=== PATIENT | male | born 1980 | race Caucasian/White ===

== ENCOUNTER 2022-01-31 09:46 | Outpatient (CLI) | payer BC, SELFPAY ==
--- NOTE | 2022-01-31 11:00 | NEURO_ITS ---
Impression: # Complains of right hand numbness and pain. # Evolving right Carpal Tunnel Syndrome. # No ulnar neuropathy. # Normal needle/EMG exam. Nerve Conduction Studies Anti Sensory Summary Table Stim Site NR Peak (ms) P-T Amp (?V) Site1 Site2 Delta-P (ms) Dist (cm) Jacky (m/s) Right Median Anti Sensory (2-3nd Digit) Wrist 3.7 63.1 Wrist 2-3nd Digit 3.7 14.0 38 Wrist 3.8 48.7 Wrist 2-3nd Digit 3.7 14.0 38 Right Radial Anti Sensory (Base 1st Digit) Wrist 2.0 27.4 Wrist Base 1st Digit 2.0 0.0 Right Ulnar Anti Sensory (5th Digit) Wrist 2.3 52.3 Wrist 5th Digit 2.3 14.0 61 Motor Summary Table Stim Site NR Onset (ms) O-P Amp (mV) Site1 Site2 Delta-0 (ms) Dist (cm) Jacky (m/s) Right Median Motor (Abd Poll Brev) Wrist 3.2 5.8 Elbow Wrist 5.0 27.0 54 Elbow 8.2 4.4 Right Ulnar Motor (Abd Dig Minimi) Wrist 2.5 5.6 A Elbow Wrist 5.2 30.0 58 A Elbow 7.7 4.6 F Wave Studies NR F-Lat (ms) L-R F-Lat (ms) Right Median (Mrkrs) (Abd Poll Brev) 26.80 Right Ulnar (Mrkrs) (Abd Dig Min) 25.77 EMG Side Muscle Nerve Root Ins Act Fibs Amp Dur Recrt Comment Right 1stDorInt Ulnar C8-T1 Nml Nml Nml Nml Nml Right Ext Indicis Radial (Post Int) C7-8 Nml Nml Nml Nml Nml Right Ext Digitorum Radial (Post Int) C7-8 Nml Nml Nml Nml Nml Right BrachioRad Radial C5-6 Nml Nml Nml Nml Nml Right PronatorTeres Median C6-7 Nml Nml Nml Nml Nml Right Abd Poll Brev Median C8-T1 Nml Nml Nml Nml Nml Right ABD Dig Min Ulnar C8-T1 Nml Nml Nml Nml Nml MTDD
== END 2022-01-31 09:47 | disposition home or self-care (01) ==
PROVIDERS: PCP Emergency Medicine; Visit Provider Emergency Medicine
DX: R20.0 Anesthesia of skin (principal); G56.01 Carpal tunnel syndrome, right upper limb; R20.2 Paresthesia of skin
CPT/HCPCS: 95886; 95909

== ENCOUNTER 2022-10-02 16:45 | Emergency (ER) | payer BC, SELFPAY ==
--- NOTE | ~2022-10-02 | XR_ITS ---
EXAMINATION: XR chest 2V DATE: 10/02/2022 17:14 INDICATION: Chest pain TECHNIQUE: PA and lateral views of the chest are obtained. COMPARISON: None available FINDINGS: The lungs are free of acute opacities. No pleural effusion or pneumothorax. The cardiomedia stinal silhouette is normal. The visualized bones and soft tissues are unremarkable. IMPRESSION: 1. No acute cardiopulmonary abnormality. Reviewed, dictated and finalized at location B. 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
--- NOTE | 2022-10-02 16:50 | ECG_ITS ---
Measurements Intervals [place] Rate: 64 P: 40 UT: 177 QRS: -29 QRSD: 106 T: -9 QT: 398 QTc: 411 Interpretive Statements SINUS RHYTHM DELAYED PRECORDIAL R/S TRANSITION LOW QRS VOLTAGE IN PRECORDIAL LEADS INCOMPLETE RIGHT BUNDLE BRANCH BLOCK BORDERLINE ST-T WAVE ABNORMALITY- INFERIOR LEADS BORDERLINE ECG NO PREVIOUS ECG AVAILABLE FOR COMPARISON Electronically Signed On 10-02-2022 20:07:08 HOUSE NURSE by Roger Oliveira D.O.
[2022-10-02 16:56] VITALS: BP 135/97; PULSE 64; RESP 16; TEMP 36.4; O2SAT 100
--- NOTE | 2022-10-02 17:12 | ED.CHESTPAIN ---
HPI - Chest Pain General Chief Complaint: Chest Pain Stated Complaint: chest pain Time Seen by Provider: 10/02/22 16:50 Source: RN notes reviewed History of Present Illness HPI narrative: Patient presents emergency department for an home for chest pain. Patient states he has been having chest pain for the past 1 week. The pain in the midsternal chest and is described as a pressure nature that has been constant for the past 1 week and does not radiate nothing makes the pain better or worse denies any fevers or chills shortness of breath nausea vomiting diarrhea or any other symptoms does try taking [id number] antacids for the pain with minimal relief Related Data Allergies Allergy/AdvReac Type Severity Reaction Status Date / Time codeine Allergy Unknown unknown Verified 10/02/22 17:45 Review of Systems Review of Systems: Gen.: Denies fevers or chills ENT: Denies congestion Respiratory: Denies shortness of breath or cough CV: See HPI GI: Denies abdominal pain nausea, emesis or diarrhea Musculoskeletal: Denies back pain or muscle pain Neuro: Denies numbness, tingling, weakness or focal weakness Skin: Denies rash Except as documented, all other systems reviewed and negative [facility] Past Medical History Medical History Abnormal laboratory test result Anxiety Apneic spell Body mass index [BMI] 24.0-24.9, adult (12/14/15) Depression Fatigue GERD without esophagitis Hyperglycemia Snoring Sore throat Strain of lumbar region Vasomotor rhinitis Viral sinusitis Vitamin D deficiency Xyphoidalgia Family History Family History Grandparent Diabetes mellitus Father Family history of hypercholesterolemia Hypertension Social History Social History Smoking status: Never smoker Alcohol intake: current Exam Narrative: APPEARANCE: No acute distress, nontoxic, resting in bed EYES: EOMI HEENT: Normocephalic, atraumatic, OMM RESPIRATORY: No respiratory distress Clear to auscultation bilaterally with no rhonchi wheezing or rales. CARDIOVASCULAR: Regular rate and rhythm without murmurs rubs or gallops. ABDOMINAL: Soft, nontender, nondistended, no rebound or guarding MUSCULOSKELETAl: Moves all extremities. No clubbing, cyanosis or edema. NEURO: Awake and alert. Following commands, speech normal, no focal deficits SKIN:: Warm, dry. No rashes lesions or abrasions PSYCHIATRIC: Normal affect/mood, Course Course Emergency Course: Discussed with patient results of workup and diagnosis. Discussed need for follow-up with primary care, proper use of medication, and reasons to return to the emergency department. Patient understands and agrees to current treatment plan Vital Signs Vital signs: Vital Signs Temperature 97.6 F 10/02/22 16:56 Pulse Rate 64 10/02/22 16:56 Respiratory Rate 16 10/02/22 16:56 Blood Pressure 135/97 H 10/02/22 16:56 Pulse Oximetry 100 10/02/22 16:56 Oxygen Delivery Room Air 10/02/22 16:56 Temperature 97.6 F 10/02/22 16:56 Pulse Rate 66 10/02/22 18:24 Respiratory Rate 15 10/02/22 18:24 Blood Pressure 118/95 H 10/02/22 18:24 Pulse Oximetry 98 10/02/22 18:24 Oxygen Delivery Room Air 10/02/22 16:56 MDM - Chest Pain MDM Narrative Medical decision making narrative: Patient's EKGs and labs are without significant high risk changes. Cardiac risk factors reviewed. Patient is felt likely low risk for ACS and reasonable for further risk stratification testing as an outpatient. Pain was not sudden or maximal in onset without tearing or ripping quality. No other signs of symptoms suggest aortic dissection. A low-risk Wells criteria is noted, PE is felt to be unlikely. No pneumonia seen on evaluation today. Patient is felt to be a reasonable candidate for continued evaluation as an outpatient pain has been co
[2022-10-02 17:42] VITALS: BP 136/103; PULSE 70; PULSE 71; RESP 19; O2SAT 100
[2022-10-02 17:57] LABS: Basophils Percent Auto 0.7 % (0.2-1.2); Eosinophils Absolute Auto 0.1 K/mm3 (0-0.3); Eosinophils Percent Auto 2.3 % (0-4.4); Hematocrit 42.9 % (42.0-52.0); Hemoglobin 14.9 g/dL (14.0-18.0); Immature Granulocyte Absolute 0.01 K/mm3 (0.00-0.031); Immature Granulocyte Percent A 0.2 % (0-0.5); Lymphocytes Absolute Auto 2.71 K/mm3 (0.9-3.2); Lymphocytes Percent Auto 48.7 % (18.3-44.2); Mean Corpuscular HGB Conc 34.7 g/dl (32-36); Mean Corpuscular Hemoglobin 30.3 pg (26-34); Mean Corpuscular Volume 87.2 fl (80-100); Mean Platelet Volume 8.8 fl (7.4-10.4); Monocytes Absolute Auto 0.5 K/mm3 (0.1-0.6); Monocytes Percent Auto 8.3 % (2.6-8.5); Neutrophils Absolute Auto 2.2 K/mm3 (1.3-6.7); Neutrophils Percent Auto 39.8 % (45.5-73.1); Platelet Count Result 270 k/mm3 (150-375); Red Blood Count 4.92 M/mm3 (4.6-6.20); Red Cell Distribution Width 12.1 % (11.5-14.5); White Blood Count 5.6 K/mm3 (4.5-10.0)
[2022-10-02 18:09] LABS: Alanine Aminotransferase 45 U/L (6-50); Albumin Level 4.6 g/dL (3.5-5.1); Alkaline Phosphatase 74 U/L (38-126); Anion Gap 5 mmol/L (8-16); Aspartate Amino Transferase 45 U/L (17-59); Bilirubin,Total 1.6 mg/dL (0.2-1.3); Blood Urea Nitrogen 15 mg/dL (9-20); Calcium 9.1 mg/dL (8.4-10.2); Carbon Dioxide 28 mmol/L (22-30); Chloride 102 mmol/L (98-107); Estimated CRCL calculation 83 ml/min; Estimated Glomerular Filt Rate > 60; Glucose 93 mg/dL (65-110); Lipase 174 U/L (23-300); Potassium 4.2 mmol/L (3.4-5.0); Sodium 135 mmol/L (137-145)
[2022-10-02 18:20] LABS: Troponin I < 0.012 ng/mL (0.000-0.034)
[2022-10-02 18:24] VITALS: BP 118/95; PULSE 66; RESP 15; O2SAT 98
[2022-10-02] MEDS: KETOROLAC 30 MG/ML VIAL (*BKC) IV PUSH (18:45)
[2022-10-02 19:05] LABS: D Dimer < 0.27 ug/mL (<0.48)
== END 2022-10-02 20:14 | disposition home or self-care (01) ==
PROVIDERS: Emergency Provider Emergency Medicine; PCP Emergency Medicine
DX: R07.89 Other chest pain (principal); K21.9 Gastro-esophageal reflux disease without esophagitis; E55.9 Vitamin D deficiency, unspecified; F41.9 Anxiety disorder, unspecified; F32.A Depression, unspecified; I45.10 Unspecified right bundle-branch block; R94.31 Abnormal electrocardiogram [ECG] [EKG]
CPT/HCPCS: 36415; 71046; 80053; 83690; 84484; 85025; 85380; 93005; 96374; 99284; A9270; J1885

== ENCOUNTER 2022-11-14 09:24 | Outpatient (CLI) | payer BC, SELFPAY ==
--- NOTE | 2022-11-14 09:28 | EST_ITS ---
Patient Info Name: Kurtis Gaspar Age: 42 years : 1980 Gender: Male Ht: 68 in Wt: 158 lbs BSA: 1.86 m2 HR: 68 bpm BP: 115 / 81 mmHg Technical Quality: Good Exam Date: 11/14/2022 9:43 AM Exam Location: [facility] Stress Patient Status: Outpatient Admit Date: 11/14/2022 Staff Ordering Physician: Hansel Langford MD Quality Reviewer: Evy Vazquez RCS Attending Provider: Hansel Langford MD Exercise Technologist: Annie Yan CT Exercise Physician: Roger Oliveira DO Exam Type: CA stress echo Study Info Indications R07.9 - Chest pain, unspecified Treadmill exercise stress echocardiogram is performed. Summary 1. 1. Negative Charli exercise stress test for ischemic ST changes by ECG criteria. 2. 2. Good functional capacity, achieving 12 METs of workload. 3. 3. Appropriate HR response to exercise. 4. 4. Appropriate HR recovery at 1 minute post exercise. 5. 5. IRBBB changes to RBBB at peak exercise. 6. 6. Incidental mild right ventricular enlargement noted. 7. 7. Negative stress echocardiogram for ischemia by wall motion analysis. 8. 8. Patient informed of the above results. Stress Echo Findings Left Ventricle Appropriate increase in LV endocardial thickening with systole. Appropriate augmentation of contractility with systole. No wall motion abnormality. Left Ventricle Normal LV systolic function, no wall motion abnormality. Right Ventricle Mild RV enlargment. Protocol: Charli Stress ECG Details Stage: REST Duration (min): 1 min : 7 sec Speed (mph): 0.0 Grade (%): 0 HR (bpm): 70 SBP (mmHg): 115 DBP (mmHg): 81 METS: --- Stage: REST Duration (min): 27 min : 41 sec Speed (mph): 0.0 Grade (%): 0 HR (bpm): 73 SBP (mmHg): 115 DBP (mmHg): 81 METS: --- Stage: STAGE 1 Duration (min): 1 min : 0 sec Speed (mph): 1.7 Grade (%): 10 HR (bpm): 88 SBP (mmHg): 115 DBP (mmHg): 81 METS: --- Stage: STAGE 1 Duration (min): 2 min : 0 sec Speed (mph): 1.7 Grade (%): 10 HR (bpm): 97 SBP (mmHg): 115 DBP (mmHg): 81 METS: --- Stage: STAGE 1 Duration (min): 3 min : 0 sec Speed (mph): 1.7 Grade (%): 10 HR (bpm): 95 SBP (mmHg): 139 DBP (mmHg): 85 METS: --- Stage: STAGE 2 Duration (min): 1 min : 0 sec Speed (mph): 2.5 Grade (%): 12 HR (bpm): 106 SBP (mmHg): 139 DBP (mmHg): 85 METS: --- Stage: STAGE 2 Duration (min): 2 min : 0 sec Speed (mph): 2.5 Grade (%): 12 HR (bpm): 111 SBP (mmHg): 147 DBP (mmHg): 83 METS: --- Stage: STAGE 2 Duration (min): 3 min : 0 sec Speed (mph): 2.5 Grade (%): 12 HR (bpm): 116 SBP (mmHg): 147 DBP (mmHg): 83 METS: --- Stage: STAGE 3 Duration (min): 1 min : 0 sec Speed (mph): 3.4 Grade (%): 14 HR (bpm): 131 SBP (mmHg): 155 DBP (mmHg): 83 METS: --- Stage: STAGE 3 Duration (min): 2 min : 0 sec Speed (mph): 3.4 Grade (%): 14 HR (bpm): 136 SBP (mmHg):
== END 2022-11-14 09:25 | disposition home or self-care (01) ==
LOC: ANHCARD 09:25
PROVIDERS: PCP Emergency Medicine; Visit Provider Emergency Medicine
DX: R07.9 Chest pain, unspecified (principal); R20.0 Anesthesia of skin; R20.2 Paresthesia of skin
CPT/HCPCS: 93351

== ENCOUNTER 2023-08-19 15:23 | Emergency (ER) | payer BC, SELFPAY ==
--- NOTE | ~2023-08-19 | US_ITS ---
EXAMINATION: US venous doppler [facility] DATE: 08/19/2023 16:08 INDICATION: Lower extremity pain, eval for DVT . TECHNIQUE: Grayscale images without and with compression and Doppler images of the bilateral lower ex tremity veins were obtained. COMPARISON: None FINDINGS: The right common femoral vein, profunda (deep) femoral vein, femoral vein, popliteal vein, peroneal v ein, posterior tibial veins, gastrocnemius vein, and greater saphenous vein are patent. The left common femoral vein, profunda (deep) femoral vein, femoral vein, popliteal vein, peroneal v ein, posterior tibial veins, gastrocnemius vein, and greater saphenous vein are patent. IMPRESSION: Patent bilateral lower extremity veins. No evidence of deep venous thrombosis. Reviewed, dictated and finalized at location K. [facility] [employer]
--- NOTE | 2023-08-19 15:50 | PC.NURSE ---
to ultrasound via wheelchair
[2023-08-19 16:09] VITALS: BP 140/99; PULSE 75; RESP 16; TEMP 36.3; O2SAT 100
--- NOTE | 2023-08-19 16:19 | ED.EXTPRO ---
HPI - Extremity Problem General Chief complaint: Extremity Problem,Nontraumatic Stated complaint: right calf pain Time Seen by Provider: 08/19/23 15:56 History of Present Illness HPI Narrative: Pt recently travelled to [facility] and developed pain in right calf without injury. Pt has FH of clots so became concerned he might have DVT. Related Data Allergies Allergy/AdvReac Type Severity Reaction Status Date / Time codeine Allergy Unknown unknown Verified 10/18/22 13:02 Review of Systems Review of Systems: All systems reviewed & are unremarkable except as noted in HPI and below PMFSH Past Medical History Medical History Abnormal laboratory test result Anxiety Apneic spell Body mass index [BMI] 24.0-24.9, adult (12/14/15) Depression Fatigue GERD without esophagitis Hyperglycemia Snoring Sore throat Strain of lumbar region Vasomotor rhinitis Viral sinusitis Vitamin D deficiency Xyphoidalgia Family History Family History Grandparent Diabetes mellitus Father Family history of hypercholesterolemia Hypertension Social History Social History Smoking status: Never smoker Alcohol intake: current Exam Const: General: healthy appearing and no acute distress Nutritional Appearance: well nourished Orientation/consciousness: patient oriented x3 Resp: Effort & Inspection: normal respiratory effort Cardio: Rate: regular rate Rhythm: regular rhythm Skin: General skin exam: normal color Rashes: no rashes Wounds: no wounds Neuro: General: patient oriented x3, moves all extremities, no meningeal signs and no focal motor deficits Extrem: General: normal to inspection Other: mild tenderness to palpation of right calf no gross swelling Psych: Mental Status: mental status grossly normal Affect: normal affect Attitude: cooperative Course Vital Signs Vital signs: Vital Signs Temperature 97.4 F L 08/19/23 16:09 Pulse Rate 75 08/19/23 16:09 Respiratory Rate 16 08/19/23 16:09 Blood Pressure 140/99 H 08/19/23 16:09 Pulse Oximetry 100 08/19/23 16:09 Oxygen Delivery Room Air 08/19/23 16:09 Temperature 97.4 F L 08/19/23 16:09 Pulse Rate 75 08/19/23 16:09 Respiratory Rate 16 08/19/23 16:09 Blood Pressure 140/99 H 08/19/23 16:09 Pulse Oximetry 100 08/19/23 16:09 Oxygen Delivery Room Air 08/19/23 16:09 MDM - Extremity (Nontraumatic) MDM Narrative Medical decision making narrative: venous dopplers ordered and negative Differential Diagnosis Differential diagnosis: Likely superficial thrombophlebitis, deep vein thrombosis of lower extremity and other (calf strain) Discharge Plan Discharge Clinical Impression: Strain of right calf muscle Patient Disposition: Home, Self-Care Condition: Stable Instructions: Antibiotic Form, Muscle Strain (DC) Prescriptions: No Action cyclobenzaprine 10 mg tablet 10 mg PO TID PRN (Reason: muscle spasm) Qty: 20 0RF escitalopram oxalate 10 mg tablet See Rx Instructions .ROUTE .COMPLEX Qty: 90 2RF Dose Instruction: Take 1 tablet by mouth once daily Rx Instructions: Take 1 tablet by mouth once daily Follow-up/Referrals: Hansel Langford MD [Primary Care Provider] -
== END 2023-08-19 16:47 | disposition home or self-care (01) ==
LOC: ANHED 16:32
PROVIDERS: Emergency Provider Emergency Medicine; PCP Emergency Medicine
DX: S86.911A Strain of unspecified muscle(s) and tendon(s) at lower leg level, right leg, initial encounter (principal); F41.9 Anxiety disorder, unspecified; F32.A Depression, unspecified; K21.9 Gastro-esophageal reflux disease without esophagitis; X58.XXXA Exposure to other specified factors, initial encounter
CPT/HCPCS: 93970; 99284